=== PATIENT | female | born 1975 | race Caucasian/White ===

== ENCOUNTER 2016-08-06 22:56 | Emergency (ER) | payer SELFPAY ==
[~2016-08-06] VITALS: Ht 165.1 cm; Wt 78.0 kg
--- NOTE | 2016-08-06 23:05 | NUR ---
PT WALKED INTO ER C/O SLIP AND FALL YESTERDAY HIT BACK OF THE HEAD IN THE FLOOR, TODAY FEELING DIZZY AND HAVING CHESTER, N/VOMITING X 1. PT IS ALERT, ORIENTED X 4, NO RESP DISTRESS NOTED OR REPORTED UPON ASSESSMENT.. MD AT BEDSIDE...
--- NOTE | 2016-08-07 00:57 | NUR ---
Patient discharged to home in stable conditon. Written and verbal after care instructions given. Patient verbalizes understanding of instructions. Pt walked out of ER unassisted with belongings at side..
[2016-08-07 00:58] VITALS: BP 126/81
[2016-08-07] MEDS ORDERED: HYDROCODONE/APAP 10-325 MG TABLET ONE (01:00)
[2016-08-07] MEDS ORDERED: HYDROCODONE/APAP 10-325 MG TABLET PO ONE (01:00)
== END 2016-08-07 00:59 | disposition home or self-care (01) ==
LOC: ER 22:56
DX: S06.0X0A Concussion without loss of consciousness, initial encounter (principal); S16.1XXA Strain of muscle, fascia and tendon at neck level, initial encounter; R42 Dizziness and giddiness; R51 Headache; W18.30XA Fall on same level, unspecified, initial encounter; Y93.89 Activity, other specified; Y99.8 Other external cause status; Y92.512 Supermarket, store or market as the place of occurrence of the external cause
CPT/HCPCS: 70450; 72125; A4663